=== PATIENT | male | born 1960 | race Caucasian/White ===

== ENCOUNTER 2025-01-27 06:16 | Day surgery (SDC) | payer OTHER ==
[2025-01-21 16:44] VITALS: BMI 30.7
[2025-01-27] MEDS ORDERED: PROPOFOL 20 ML ONE ×2 (15:34→15:48)
[2025-01-27] MEDS ORDERED: GLYCOPYRROLATE 0.2 MG/1 ML VIAL ONE (15:38)
[2025-01-27] MEDS ORDERED: ONDANSETRON 4 MG/2 ML VIAL IVPUSH PRN (16:03)
[2025-01-27] MEDS ORDERED: ONDANSETRON 4 MG/2 ML VIAL ONE (16:10)
[2025-01-27] MEDS ORDERED: LACTATED RINGERS SOLUTION 1,000 ML IV SCH (16:15)
[2025-01-27 17:58] VITALS: RESP 16
[2025-01-27 18:18] VITALS: BP 135/70; PULSE 55; TEMP 97.1
== END 2025-01-27 18:05 | disposition home or self-care (01) ==
LOC: JASU-SURG 06:16
PROVIDERS: ATTEND Urology
PROC: 0T7D8DZ Dilation of Urethra with Intraluminal Device, Via Natural or Artificial Opening Endoscopic (ICD-10-PCS; principal; 2025-01-27 13:30)
DX: N40.1 Benign prostatic hyperplasia with lower urinary tract symptoms (principal); R39.12 Poor urinary stream; R33.8 Other retention of urine
CPT/HCPCS: C9740; L8699; 94760